=== PATIENT | male | born 1960 | race Caucasian/White ===

== ENCOUNTER → 2019-11-29 10:40 | Outpatient (BNVA) | payer MEDICARE, MEDICAID, SELFPAY | PROVIDERS: Family Provider Student in an Organized Health Care Education/Training Program; PCP Student in an Organized Health Care Education/Training Program; Visit Provider Family Medicine | DX: E11.9 Type 2 diabetes mellitus without complications (principal); I10 Essential (primary) hypertension; I25.10 Atherosclerotic heart disease of native coronary artery without angina pectoris; R09.81 Nasal congestion; J32.9 Chronic sinusitis, unspecified; F17.219 Nicotine dependence, cigarettes, with unspecified nicotine-induced disorders | CPT/HCPCS: 80053; 80061; 83036; 85025 ==

== ENCOUNTER 2019-12-31 21:27 | Emergency (ER) | payer MEDICARE, MEDICAID, SELFPAY ==
[2019-12-31 21:32] VITALS: BP 173/101; PULSE 89; RESP 18; TEMP 36.8; O2SAT 95; BMI 32.3
--- NOTE | 2019-12-31 21:32 | XR_ITS ---
WS: [id number] XR chest 1V portable [id number] REASON FOR EXAM: cough/congestion FINDINGS: The heart and mediastinal interfaces normal. The lung ewing appear to be adequately aerated no pneumonia, pleural effusion, pulmonary edema, or m ass effect. The hilum and apices are normal. The pleural surfaces all appear to be normal. No osseous abnormalities. XR/XR chest 1V portable [id number] IMPRESSION: No active cardiopulmonary changes.
--- NOTE | 2019-12-31 21:33 | ECG_ITS ---
Measurements Intervals [place] Rate: 64 P: 48 MS: 161 QRS: 38 QRSD: 94 T: -11 QT: 380 QTc: 393 SINUS RHYTHM SEPTAL MYOCARDIAL INFARCTION , OF INDETERMINATE AGE [40+ ms Q WAVE IN V1/V2] No previous ECG available for comparison Electronically Signed On 01-01-2020 20:21:03 DISTRIBUTION COLLECTION OPERATOR by Jose Phillips M.D. [id number]
--- NOTE | 2019-12-31 21:38 | PC.NURSE ---
Patient states he was sitting at home and started feeling hot and shaky, patient states this started about an hour ago. Patient states he has had these symptoms before. Patient states he is on medication for his diabetes but stopped taking it last night. Patient states his stomach is swollen and he is having nausea. Patient states he feels fine now but just a little shaky . Patient states his blood pressure was high at home. Patients blood pressure is 173/101 in ED initially. Patient states he has three stents and has multiple heart attacks in the past.
[2019-12-31 21:46] VITALS: BP 170/95; PULSE 82; RESP 16; O2SAT 95
--- NOTE | 2019-12-31 21:46 | W.ED.GENADLT ---
HPI - General Adult General: Chief complaint: Shortness of Breath/Dyspnea Stated complaint: CP Time Seen by Provider: 12/31/19 21:33 Source: patient Mode of arrival: ambulatory Limitations: no limitations History of Present Illness: HPI narrative: Patient is a very nice 59-year-old male who presents to ED today stating that approximately an hour ago after eating dinner and while watching television he began developing arms that felt hot , feeling shaky, and shortness of breath. Patient states he has had all of the above symptoms with previous panic attacks. Patient states he never had chest pains. He states upon arrival his symptoms have resolved. He is complaining of some abdominal bloating/distention that he states has been present ever since starting a new diabetic medication. Patient reports he has chronic constipation that is being treated with Linzess. Patient reports a previous heart attack 3 years ago. He currently has 3 cardiac stents. Unknown when his last stress test or echocardiogram was performed. Associated symptoms: Reports dyspnea (improved now); Deny chest pain, headache(s), malaise, nausea, rash, palpitations, syncope or vomiting Review of Systems Const: Denies: fever, chills, body aches, change in appetite, change in weight, fatigue or malaise Eyes: Denies: change in vision or blurry vision ENMT: Denies: throat pain, enlarged tonsils or painful swallowing Card: Denies: chest pain, palpitations, irregular heart rhythm, edema, swelling of feet/ankles, lightheadedness, syncope, pre-syncope, shortness of breath on exertion or shortness of breath when lying down Resp: Reports: shortness of breath (improved now); Denies: productive cough, non-productive cough or chest congestion GI: Reports: constipation and bloating; Denies: nausea, vomiting or diarrhea : Denies: flank pain, difficulty urinating, painful urination, urinary frequency or urinary urgency Musc: Denies: neck pain, back pain, extremity pain, extremity swelling or joint pain Skin/Breast: Denies: rash Neuro: Denies: headache, numbness in extremities, weakness in extremities or changes in sensation PFS ED PFSH: Social History Smoking and tobacco status: current every day smoker cigarettes Packs smoked per day: 1 Alcohol intake: never Lives independently: Yes Household members: spouse Marital status: Current occupational status: disabled History of recent travel: No Physical Exam Const: COMMON NORMALS: no apparent distress, oriented x3, no limitations, alert and well nourished NUTRITIONAL APPEARANCE: obese HENMT: COMMON NORMALS: normocephalic and head/scalp atraumatic HEAD & SCALP: normocephalic and atraumatic Chest: COMMONS NORMALS: inspection of chest normal and palpation of chest normal Resp: COMMON NORMALS: normal respiratory effort and clear to auscultation bilaterally AUSCULTATION: clear to auscultation bilaterally Cardio: COMMON NORMALS: regular rate and regular rhythm RATE: regular rate RHYTHM: regular rhythm GI: COMMON NORMALS: normal to inspection, nondistended, normoactive bowel sounds, soft to palpation, non-tender, no hepatosplenomegaly and no masses PALPATION: Yes soft and Yes no hepatosplenomegaly Extremity: COMMON NORMALS: normal to inspection Neuro: COMMON NORMALS: oriented x3 SENSORIUM/ORIENTATION: Yes alert Skin: COMMON NORMALS: no rashes or lesions noted GENERAL SKIN EXAM: no rashes or lesions noted Course Vital Signs: Vital signs: Vital Signs Temperature 98.2 F 12/31/19 21:32 Pulse Rate 73 01/01/20 00:36 Respiratory Rate 16 01/01/20 00:36 Blood Pressure 152/84 01/01/20 00:36 Pulse Oximetry 94 01/01/20 00:36 MDM - General Adult MDM Narrative: Medical decision making narrative: Patient has remained completely asymptomatic throughout his stay. He is wanting to go home. His labs are non-concerning. Baseline troponin was 11 with a negative delta. EKG without acute changes. At this time I feel patient is stable to be discharged with return to ED precautions. Patient's heart score at this time is 3. Lab Data: Labs: Lab Results 12/31/19 12/31/19 12/31/19 Range/Units 21:34 21:34 21:34 WBC 8.2 (4.0-10.0) 10^3/ uL RBC 5.85 H (4.1-5.3) 10^6/u L Hgb 17.0 H (11.7-16.6) g/dL Hct 52.5 H (42.0-52.0) % MCV 89.7 (80-94) fL MCH 29.1 (28.0-34.0) pg MCHC 32.4 (30.0-36.0) g/dL RDW 12.9 (12.1-15.1) % Plt Count 188 (130-400) 10^3/c mm MPV 11.3 H (7.4-10.4) fL Neut % (Auto) 65.9 % Lymph % (Auto) 22.4 % Dickens % (Auto) 7.1 % Eos % (Auto) 3.0 % Baso % (Auto) 0.9 % Neut # (Auto) 5.4 (1.8-7.7) 10^3/u L Lymph # (Auto) 1.8 (0.8-4.8) 10^3/u L Dickens # (Auto) 0.6 (0.2-0.9) 10^3/u L Eos # (Auto) 0.3 (0.0-0.8) 10^3/u L Baso # (Auto) 0.1 (0.0-0.1) 10^3/u L Nucleated RBC % (a uto) 0 % Nucleated RBCs # 0.0 /100WBC Sodium 140 (136-145) mmol/L Potassium 4.0 (3.5-5.1) mmol/L Chloride 99 (98-107) mmol/L Carbon Dioxide 27 (22-29) mmol/L Anion Gap 18.0 (5-19) BUN 14 (8-23) mg/dL Creatinine 1.4 H (0.7-1.2) mg/dL GFR Calculation 51.7 L (90-130) mL/min Glucose 220 H (65-115) mg/dL Calcium 9.3 (8.5-10.5) mg/dL Total Bilirubin 0.2 (0.15-1.2) mg/dL AST 13 (0-40) U/L ALT 16 (0-41) U/L Alkaline Phosphata se 71 (40-130) IU/L Troponin T Baselin e 11 (0-15) ng/mL Troponin T 120 Min [place] (0-15) ng/mL Delta Troponin T (0-10) ABS# Total Protein 7.0 (6.6-8.7) g/dL Albumin 4.1 (3.5-5.2) g/dL Globulin 2.9 (1.3-4.6) g/dL 12/31/19 Range/Units 23:45 WBC (4.0-10.0) 10^3/ uL RBC (4.1-5.3) 10^6/u L Hgb (11.7-16.6) g/dL Hct (42.0-52.0) % MCV (80-94) fL MCH (28.0-34.0) pg MCHC (30.0-36.0) g/dL RDW (12.1-15.1) % Plt Count (130-400) 10^3/c mm MPV (7.4-10.4) fL Neut % (Auto) % Lymph % (Auto) % Dickens % (Auto) % Eos % (Auto) % Baso % (Auto) % Neut # (Auto) (1.8-7.7) 10^3/u L Lymph # (Auto) (0.8-4.8) 10^3/u L Dickens # (Auto) (0.2-0.9) 10^3/u L Eos # (Auto) (0.0-0.8) 10^3/u L Baso # (Auto) (0.0-0.1) 10^3/u L Nucleated RBC % (a uto) % Nucleated RBCs # /100WBC Sodium (136-145) mmol/L Potassium (3.5-5.1) mmol/L Chloride (98-107) mmol/L Carbon Dioxide (22-29) mmol/L Anion Gap (5-19) BUN (8-23) mg/dL Creatinine (0.7-1.2) mg/dL GFR Calculation (90-130) mL/min Glucose (65-115) mg/dL Calcium (8.5-10.5) mg/dL Total Bilirubin (0.15-1.2) mg/dL AST (0-40) U/L ALT (0-41) U/L Alkaline Phosphata se (40-130) IU/L Troponin T Baselin e (0-15) ng/mL Troponin T 120 Min [place] 10.51 (0-15) ng/mL Delta Troponin T -0.49 L (0-10) ABS# Total Protein (6.6-8.7) g/dL Albumin (3.5-5.2) g/dL Globulin (1.3-4.6) g/dL Imaging Data^: CXR: My impression: NAD EKG Data^: EKG 1: EKG interpretation date: 12/31/19 EKG interpretation time: 21:42 Interpretation: Sinus rhythm Rate [address] elevation or depression noted EKG 2: EKG interpretation date: 12/31/19 EKG interpretation time: 23:42 Interpretation: Sinus rhythm Rate 64 No acute changes from EKG earlier this visit Discharge Plan Discharge Patient Disposition: Home, Self-Care Clinical Impression: Panic attack Condition: Stable Prescriptions: No Action carvedilol 6.25 mg tablet 6.25 mg PO BID RF: 0 clopidogrel [Plavix] 75 mg tablet 75 mg PO QDAY RF: 0 nitroglycerin 0.4 mg tablet, sublingual 0.4 mg SUBLINGUAL Q5M PRNRF: 0 Linzess 290 mcg capsule 290 mcg PO QDAY RF: 0 lisinopril 20 mg tablet 20 mg PO BID RF: 0 duloxetine 60 mg capsule,delayed release(DR/EC) 60 mg PO QDAY RF: 0 testosterone cypionate 200 mg/mL kit 200 mg IM .every 10 days RF: 0 multivitamin Tablet 1 tab PO QDAY RF: 0 omeprazole 20 mg capsule,delayed release(DR/EC) 20 mg PO QDAY RF: 0 aspirin 81 mg tablet,delayed release (DR/EC) 81 mg PO QDAY RF: 0 methadone 40 mg tablet,soluble 200 mg PO QDAY RF: 0 methadone 5 mg tablet 5 mg PO QDAY RF: 0 fluticasone propionate [Flonase Allergy Relief] 50 mcg/actuation spray,suspension 2 spray INTRANASAL QDAY Qty: 18.2 RF: 2 pravastatin 40 mg tablet 40 mg PO DAILY Qty: 30 RF: 0 Jardiance 25 mg tablet 25 mg PO QDAY Qty: 30 RF: 0 lactulose 10 gram/15 mL solution 10 g PO BID Qty: 473 RF: 0 Discharge Orders: Discharge Order (Routine); Ordered 01/01/20 Ordered By: Phyllis Obando Referrals: Paolo Bar [Family Provider] - Glendy Caceres DO [Primary Care Provider] - Discharge Diet: Usual diet Discharge Activity: Increase activity as tolerated Activity Restrictions/Additional Instructions: Return to the emergency department for any onset of chest pain, difficulty breathing, shortness of breath. Otherwise he may follow-up with your primary care provider. Discharge Date/Time: 01/01/20 00:38 Coding Level of Care Code ED Webmethods Architect for Amy Fwd Exam Comprehensive
[2019-12-31 21:49] LABS: Basophils # 0.1 10^3/uL (0.0-0.1); Basophils % 0.9 %; Eosinophils # 0.3 10^3/uL (0.0-0.8); Hematocrit 52.5 % (42.0-52.0); Lymphocytes # 1.8 10^3/uL (0.8-4.8); Lymphocytes % 22.4 %; Mean Corpuscular HGB Conc 32.4 g/dL (30.0-36.0); Mean Corpuscular Hemoglobin 29.1 pg (28.0-34.0); Mean Corpuscular Volume 89.7 fL (80-94); Mean Platelet Volume 11.3 fL (7.4-10.4); Monocytes # 0.6 10^3/uL (0.2-0.9); Monocytes % 7.1 %; Neutrophils # 5.4 10^3/uL (1.8-7.7); Neutrophils % 65.9 %; Nucleated Red Blood Cells % 0 %; Platelet Count 188 10^3/cmm (130-400); Red Blood Count 5.85 10^6/uL (4.1-5.3); Red Cell Distribution Width 12.9 % (12.1-15.1); White Blood Count 8.2 10^3/uL (4.0-10.0)
[2019-12-31 22:06] LABS: Alanine Aminotransferase 16 U/L (0-41); Albumin Level 4.1 g/dL (3.5-5.2); Alkaline Phosphatase 71 IU/L (40-130); Aspartate Amino Transferase 13 U/L (0-40); Blood Urea Nitrogen 14 mg/dL (8-23); Calcium 9.3 mg/dL (8.5-10.5); Carbon Dioxide 27 mmol/L (22-29); Chloride 99 mmol/L (98-107); Globulin 2.9 g/dL (1.3-4.6); Glomerular Filtration Rate 51.7 mL/min (90-130); Glucose 220 mg/dL (65-115); Sodium 140 mmol/L (136-145); Total Bilirubin 0.2 mg/dL (0.15-1.2)
[2019-12-31 22:09] VITALS: BP 171/90; PULSE 84; RESP 16; O2SAT 93
[2019-12-31 22:09] LABS: Troponin(5th) Baseline 11 ng/mL (0-15)
[2019-12-31 22:51] VITALS: BP 166/95; PULSE 77; RESP 16; O2SAT 94
[2019-12-31 23:25] VITALS: BP 137/84; PULSE 70; RESP 16; O2SAT 93
--- NOTE | 2019-12-31 23:33 | ECG_ITS ---
Measurements Intervals [place] Rate: 82 P: 62 MT: 163 QRS: 40 QRSD: 92 T: -5 QT: 361 QTc: 422 SINUS RHYTHM SEPTAL MYOCARDIAL INFARCTION , PROBABLY OLD [40+ ms Q WAVE IN V1/V2] No previous ECG available for comparison Electronically Signed On 01-01-2020 20:27:28 BLOCKER HEATED METAL FORMS by Jose Phillips M.D. [id number]
[2020-01-01 00:12] VITALS: BP 144/86; PULSE 77; RESP 16; O2SAT 94
[2020-01-01 00:17] LABS: Troponin 5 2HR 10.51 ng/mL (0-15)
[2020-01-01 00:19] LABS: Troponin 5 2HR Delta -0.49 ABS# (0-10)
[2020-01-01 00:36] VITALS: BP 152/84; PULSE 73; RESP 16; O2SAT 94
== END 2020-01-01 00:38 | disposition home or self-care (01) ==
PROVIDERS: Emergency Provider Physician Assistant; Family Provider Student in an Organized Health Care Education/Training Program; PCP Family Medicine
DX: F41.0 Panic disorder [episodic paroxysmal anxiety] (principal); E11.9 Type 2 diabetes mellitus without complications; I25.2 Old myocardial infarction; F17.210 Nicotine dependence, cigarettes, uncomplicated; Z79.84 Long term (current) use of oral hypoglycemic drugs; Z95.5 Presence of coronary angioplasty implant and graft
CPT/HCPCS: 71045; 80053; 84484; 85025; 93005; 99281; 99282; 99283

== ENCOUNTER 2020-01-16 08:23 | Day surgery (SDC) | payer MEDICARE, MEDICAID, SELFPAY ==
[2020-01-15 10:49] VITALS: BMI 32.3
[2020-01-15 10:53] VITALS: BMI 32.3
--- NOTE | 2020-01-16 08:49 | ANES.PREANE2 ---
Pre-Anesthetic Assessment Pre-Anesthetic Assessment: Height/Weight: Height 1.68 m Weight 90.718 kg Proposed Procedure: Operation Date: 01/16/20 10:00 Proposed Procedures p Colonoscopy(Not Applicable) - Dany Roth MD Social: Social History: Tobacco and No alcohol Exam: Pre-Anes Outpt Exam: alert, oriented x 3, clear to auscultation bilaterally and regular rate & rhythm Airway: Submandibular: WNL Cervical ROM: WNL MP: 2 Dentition: Full History/ROS: No significant history except as noted Pulmonary: Pulmonary: None reported CV/HEM: CV/HEM: CAD (stents placed 2018, stable since) and HTN : : None reported Hepatic: Hepatic: None reported GI: GI: GERD Metabolic: Metabolic: Hyperlipidemia Musc/skel: Comments: right arm pain, chronic Neuropsych: Neuropsych: Anxiety and Depression Anesthetic Plan: ASA status: 3 Anesthesia: Anesthesia Evaluation and MAC Risk of > 500 ml blood loss (7ml/kg in children): No PFSH Anesthesia PFSH: Social History Smoking and tobacco status: current every day smoker cigarettes Packs smoked per day: 1 Alcohol intake: never Lives independently: Yes Household members: spouse Marital status: Current occupational status: disabled History of recent travel: No Data Anesthesia Cardiac Studies: No Data to Display
[2020-01-16 09:10] VITALS: BP 184/109; PULSE 85; RESP 18; TEMP 37.2; O2SAT 94
[2020-01-16] MEDS: sodium chloride 0.9% 1,000 ML 30 ML IV (09:15)
[2020-01-16 09:18] LABS: Glucose Point of Care 93 mg/dL (70-110)
--- NOTE | 2020-01-16 10:29 | W.PM.OPSUD ---
Surgery/Procedure H&P Update DATE OF PROCEDURE: January 16, 2020 DATE H&P PERFORMED: 12/29/19 H&P UPDATE INFORMATION: I have reviewed H&P completed within last 30 days, I have examined patient prior to procedure and No changes to prior documentation PREOP DIAGNOSIS: Screening PLANNED PROCEDURE: Operation Date: 01/16/20 10:00 Proposed Procedures p Colonoscopy(Not Applicable) - Dany Roth MD
[2020-01-16 10:50] VITALS: BP 127/75; PULSE 70; RESP 16; TEMP 36.8; O2SAT 96
--- NOTE | 2020-01-16 10:52 | ANE.PACU2 ---
 Inpatient post-anesthesia follow up: Airway intact: Yes Vital signs: Temperature 98.2 F Pulse Rate 70 Respiratory Rate 16 Blood Pressure 127/75 Pulse Oximetry 96 Oxygen Delivery Me thod Nasal Cannula Oxygen Flow Rate 4 Fraction of Inspir ed Oxygen Hydration adequate: Yes Nausea and vomiting: No Pain level: 1 Mental status: Baseline
[2020-01-16 10:57] VITALS: BP 120/68; PULSE 7; RESP 18; O2SAT 98
== END 2020-01-16 11:23 | disposition home or self-care (01) ==
PROVIDERS: Family Provider Student in an Organized Health Care Education/Training Program; PCP Family Medicine; Visit Provider Surgery
PROC: 0DJD8ZZ Inspection of Lower Intestinal Tract, Via Natural or Artificial Opening Endoscopic (ICD-10-PCS; CPT 45378; principal; 2020-01-16 10:00)
DX: Z12.11 Encounter for screening for malignant neoplasm of colon (principal); Z53.8 Procedure and treatment not carried out for other reasons; I25.10 Atherosclerotic heart disease of native coronary artery without angina pectoris; Z95.5 Presence of coronary angioplasty implant and graft; I10 Essential (primary) hypertension; K21.9 Gastro-esophageal reflux disease without esophagitis; E78.5 Hyperlipidemia, unspecified; F41.9 Anxiety disorder, unspecified; F32.9 Major depressive disorder, single episode, unspecified; F17.210 Nicotine dependence, cigarettes, uncomplicated; Z79.82 Long term (current) use of aspirin; E11.9 Type 2 diabetes mellitus without complications; Z82.49 Family history of ischemic heart disease and other diseases of the circulatory system; Z83.3 Family history of diabetes mellitus
CPT/HCPCS: 12345; 36416; 45330; 82962; G0121; J2704; J7030

== ENCOUNTER 2020-01-17 07:02 | Day surgery (SDC) | payer MEDICARE, MEDICAID, SELFPAY ==
[2020-01-16 12:46] VITALS: BMI 32.3
[2020-01-17 07:19] VITALS: BP 161/94; PULSE 74; RESP 18; TEMP 36.4; O2SAT 97
[2020-01-17] MEDS: sodium chloride 0.9% 1,000 ML 30 ML (07:27)
[2020-01-17 07:30] LABS: Glucose Point of Care 102 mg/dL (70-110)
--- NOTE | 2020-01-17 08:04 | W.PM.OPSUD ---
Surgery/Procedure H&P Update DATE OF PROCEDURE: January 17, 2020 DATE H&P PERFORMED: 12/29/19 H&P UPDATE INFORMATION: I have reviewed H&P completed within last 30 days, I have examined patient prior to procedure and No changes to prior documentation PREOP DIAGNOSIS: Screening PLANNED PROCEDURE: Operation Date: 01/17/20 08:00 Proposed Procedures p Colonoscopy(Not Applicable) - Dany Roth MD
--- NOTE | 2020-01-17 08:06 | P.ANESASSM_ITS ---
Pre-Anesthetic Assessment Pre-Anesthetic Assessment: Height/Weight: Height 1.68 m Weight 90.718 kg Temp Pulse Resp BP Pulse Ox 97.5 F L 74 18 161/94 97 01/17/20 07:19 01/17/20 07:19 01/17/20 07:19 01/17/20 07:19 01/17/20 07:19 Preop Diagnosis: Screening Proposed Procedure: Operation Date: 01/17/20 08:00 Proposed Procedures p Colonoscopy(Not Applicable) - Dany Roth MD Last intake: Intake Last Liquid Date 01/16/20 Last Liquid Time 22:00 Last Solid Date 01/14/20 Last Solid Time 18:00 Social: Social History: Tobacco and No alcohol Exam: Pre-Anes Outpt Exam: alert, oriented x 3, clear to auscultation bilaterally and regular rate & rhythm Airway: Submandibular: WNL Cervical ROM: WNL MP: 2 Dentition: Full History/ROS: No significant history except as noted Pulmonary: Pulmonary: None reported CV/HEM: CV/HEM: CAD (2018 stents) and HTN : : None reported Hepatic: Hepatic: None reported GI: GI: GERD Metabolic: Metabolic: DM and Hyperlipidemia Musc/skel: Musc/skel: None reported Neuropsych: Neuropsych: Anxiety and Depression Anesthetic Plan: ASA status: 3 Anesthesia: Anesthesia Evaluation and MAC Risk of > 500 ml blood loss (7ml/kg in children): No PFSH Anesthesia PFSH: Medical History Benign essential HTN CAD in [place] artery Constipation Drug dependence, in remission GERD (gastroesophageal reflux disease) Hyperlipidemia Hypogonadism in male Major depression Type 2 diabetes mellitus, without long-term current use of insulin Surgical History H/O umbilical hernia repair History of coronary artery stent placement S/P appendectomy Family History Other CAD (coronary artery disease) Diabetes Hypertension Denies family history of Anesthesia complication Bleeding disorder Social History Smoking and tobacco status: current every day smoker cigarettes Packs smoked per day: 1 Alcohol intake: never Lives independently: Yes Household members: spouse Marital status: Current occupational status: disabled History of recent travel: No Data Anesthesia Other Labs: Laboratory Results - last 48 hr 01/17/20 07:27 POC Glucose 102 Cardiac Studies: No Data to Display
[2020-01-17 08:47] VITALS: BP 108/67; PULSE 63; RESP 18; TEMP 36.1; O2SAT 96
[2020-01-17 08:57] VITALS: BP 120/74; PULSE 68; RESP 18; O2SAT 94
== END 2020-01-17 09:08 | disposition home or self-care (01) ==
PROVIDERS: Family Provider Student in an Organized Health Care Education/Training Program; PCP Family Medicine; Visit Provider Surgery
PROC: 0DJD8ZZ Inspection of Lower Intestinal Tract, Via Natural or Artificial Opening Endoscopic (ICD-10-PCS; CPT 45378; principal; 2020-01-17 08:00)
DX: Z12.11 Encounter for screening for malignant neoplasm of colon (principal); Z79.82 Long term (current) use of aspirin; I10 Essential (primary) hypertension; I25.10 Atherosclerotic heart disease of native coronary artery without angina pectoris; Z95.1 Presence of aortocoronary bypass graft; Z82.49 Family history of ischemic heart disease and other diseases of the circulatory system; Z83.3 Family history of diabetes mellitus; F17.210 Nicotine dependence, cigarettes, uncomplicated; K64.8 Other hemorrhoids; K21.9 Gastro-esophageal reflux disease without esophagitis; E11.9 Type 2 diabetes mellitus without complications; E78.5 Hyperlipidemia, unspecified
CPT/HCPCS: 12345; 36416; 45378; 82962; G0121; J2704; J7030

== ENCOUNTER 2022-02-02 07:57 | Emergency (ER) | payer MEDICARE, MEDICAID, SELFPAY ==
[2022-02-02 08:07] VITALS: BP 161/87; PULSE 65; RESP 18; TEMP 36.9; O2SAT 97; BMI 31.4
--- NOTE | 2022-02-02 08:18 | W.ED.EXTPRO ---
HPI - Extremity Problem General: Chief complaint: Extremity Injury, Upper Stated complaint: left arm injury Time Seen by Provider: 02/02/22 08:11 History of Present Illness: Patient is a 61-year-old male that comes to the ED with left arm injury. Patient says he just moved to the area and was lifting and getting things set up and moved into his house. He was lifting a heavy object and he felt a pop in his left wrist and forearm area. He now has 6 out of 10 pain in his left forearm and wrist. Some range of motion movements of the left wrist causes pain. Associated symptoms: Deny chest pain, fever(s) or rash Review of Systems Const: Denies: fever(s), chills or fatigue Eyes: Denies: change in vision or eye discomfort ENMT: Denies: throat pain, odynophagia, nasal discharge or nasal congestion Card: Denies: chest pain, palpitations, edema, swelling of feet/ankles, dyspnea on exertion or orthopnea Resp: Denies: dyspnea, productive cough or non-productive cough GI: Denies: abdominal pain, nausea, vomiting, diarrhea, constipation or hematochezia : Denies: flank pain, difficulty urinating, dysuria or hematuria Musc: Reports: extremity pain (left wrist and forearm); Denies: neck pain, back pain or extremity swelling Skin/Breast: Denies: rash or new lesions Neuro: Denies: headache(s), numbness in extremities or weakness in extremities [facility] ED PFSH: Medical History (Updated 02/02/22 @ 09:15 by BHAKTI Gabriel) Benign essential HTN CAD in [place] artery Constipation Drug dependence, in remission GERD (gastroesophageal reflux disease) Hyperlipidemia Hypogonadism in male Major depression Type 2 diabetes mellitus, without long-term current use of insulin Surgical History H/O umbilical hernia repair History of coronary artery stent placement S/P appendectomy Family History Other CAD (coronary artery disease) Diabetes Hypertension Denies family history of Anesthesia complication Bleeding disorder Social History Smoking and tobacco status: current every day smoker cigarettes Packs smoked per day: 1 Alcohol intake: never Lives independently: Yes Household members: spouse Marital status: Current occupational status: disabled History of recent travel: No Physical Exam Const: COMMON NORMALS: no acute distress, patient oriented x3, healthy appearing and alert GENERAL APPEARANCE: cooperative and comfortable HENMT: COMMON NORMALS: normocephalic HEAD & SCALP: normocephalic MOUTH: Normal oral and palatal mucosa present THROAT: posterior oropharynx normal and uvula midline Neck/C-Spine: COMMON NORMALS: supple GENERAL: Yes normal visual inspection Resp: COMMON NORMALS: normal respiratory effort, No retractions, No use of accessory muscles and clear to auscultation bilaterally AUSCULTATION: clear to auscultation bilaterally Cardio: COMMON NORMALS: regular rate, regular rhythm, S1 normal heart sound present, S2 normal heart sound present, No gallops present (Cardio), No clicks present (Cardio), No murmurs present (Cardio) and Peripheral pulses 2+ throughout RATE: regular rate RHYTHM: regular rhythm HEART SOUNDS: S1 normal heart sound present and S2 normal heart sound present PERIPHERAL PULSES: Peripheral pulses 2+ throughout GI: COMMON NORMALS: Normal to inspection, nondistended, normoactive bowel sounds present, Soft to palpation, non-tender and no masses PALPATION: Yes Soft to palpation : COMMON NORMALS: Yes no CVA tenderness BLADDER/KIDNEY EXAM: Yes no CVA tenderness Back/Pelvis: COMMON NORMALS: no CVA tenderness Extremity: NARRATIVE EXTREMITY EXAM: Left wrist and forearm. Mild tenderness over mid forearm. Some limited range of motion due to pain. No visible deformity, erythema, swelling or ecchymosis noted. Neurovascular intact. GENERAL: Yes normal exam except as noted Neuro: COMMON NORMALS: patient oriented x3 and moves all extremities SENSORIUM/ORIENTATION: Yes alert Skin: GENERAL SKIN EXAM: dry skin Course Vital Signs: Vital signs: Vital Signs Temperature 98.4 F 02/02/22 08:07 Pulse Rate 65 02/02/22 08:07 Respiratory Rate 18 02/02/22 08:07 Blood Pressure 161/87 02/02/22 08:07 Pulse Oximetry 97 02/02/22 08:07 MDM - Extremity (Nontraumatic) Medical Decision Making Patient is a 61-year-old male comes to the ED with left forearm and wrist injury. Patient says he is moving here to [place] and is currently doing a lot of lifting and moving. He felt a pop in his left wrist and forearm. Vitals are stable. Exam of left arm is unremarkable. X-ray of left wrist and left forearm showed no acute fractures or findings. Patient diagnosed with a forearm strain and was discharged home. He was told to follow-up with his PCP in the next week for reevaluation. Return to ED precautions given. Patient understood agree with plan. Lab Data Radiology Impressions Forearm X-Ray 02/02/22 08:31 IMPRESSION: No acute abnormality. Wrist X-Ray 02/02/22 08:31 IMPRESSION: No acute abnormality. Discharge Plan Discharge Patient Disposition: Home Clinical Impression: Strain of forearm, left Qualifiers: Encounter type: initial encounter Qualified Code(s): S56.912A - Strain of unspecified muscles, fascia and tendons at forearm level, left arm, initial encounter Condition: Stable Prescriptions: No Action clopidogrel [Plavix] 75 mg tablet 75 mg PO QDAY 0RF nitroglycerin 0.4 mg tablet, sublingual 0.4 mg SUBLINGUAL Q5M PRN (Reason: Chest Pain) 0RF duloxetine 60 mg capsule,delayed release(DR/EC) 60 mg PO QDAY 0RF multivitamin Tablet 1 tab PO QDAY 0RF Ozempic 0.25 mg or 0.5 mg(2 mg/1.5 mL) pen injector 0.25 mg SUBCUT ONCE Qty: 1.5 1RF aspirin 81 mg tablet,delayed release (DR/EC) 81 mg PO QDAY 0RF methadone 40 mg tablet,soluble 200 mg PO QDAY 0RF methadone 5 mg tablet 5 mg PO QDAY 0RF Linzess 290 mcg capsule 290 mcg PO QDAY Qty: 90 0RF carvedilol 6.25 mg tablet 6.25 mg PO BID 90 Days Qty: 180 3RF fluticasone propionate [Flonase Allergy Relief] 50 mcg/actuation spray,suspension 2 spray INTRANASAL QDAY Qty: 18.2 0RF Rx Instructions: administer into each nostril famotidine 20 mg tablet 20 mg PO DAILY Qty: 30 0RF pravastatin 40 mg tablet 40 mg PO DAILY Qty: 30 0RF testosterone cypionate 200 mg/mL oil 200 mg IM .every 10 days Qty: 10 5RF lisinopril 20 mg tablet 20 mg PO BID Qty: 60 0RF Rx Instructions: Must make follow-up for further refills Discharge Orders: Discharge ED (Routine); Ordered 02/02/22 Ordered By: Vladislav Lopez Referrals: Glendy Caceres DO [Primary Care Provider] - Discharge Diet: Regular Discharge Activity: Increase activity as tolerated Activity Restrictions/Additional Instructions: Follow-up with medical provider as directed in the next 5 to 7 days for reevaluation. Rest and limit activity with left arm for the next couple days to allow for healing. Apply cold pack on left arm and take [id number] Tylenol for pain. Return to the ER or your medical provider if condition worsens. Please read and understand discharge instructions. Thank you for choosing [facility] for your healthcare needs today. Please realize this is an emergency room and that we are providing you with a medical screening exam and this may not be complete and all inclusive of all the testing and or work up that you may need to determine your ailment or severity of your illness. It is very important that you follow up as instructed or that you return to the Emergency Department should you have concerns or if your condition changes or worsens in any way. Coding Level of Care Code ED Ethanol Quality Leader for Amy Haddad Exam Comprehensive
--- NOTE | 2022-02-02 08:31 | XR_ITS ---
WS: [id number] XR forearm LT 2V [id number] REASON FOR EXAM: injury while lifting FINDINGS: No fracture of the radius or ulna. No dislocation of the radial ulnar articulations proximally or distally. No soft tissue abnormality. XR/XR forearm LT 2V [id number] IMPRESSION: No acute abnormality.
--- NOTE | 2022-02-02 08:31 | XR_ITS ---
WS: [id number] XR wrist LT min 3V* [id number] REASON FOR EXAM: injury while lifting FINDINGS: No fracture or focal bone lesion. Joint spaces of the left wrist are intact and well preserved. No soft tissue abnormality. XR/XR wrist LT min 3V* [id number] IMPRESSION: No acute abnormality.
== END 2022-02-02 09:29 | disposition home or self-care (01) ==
PROVIDERS: Emergency Provider Physician Assistant; PCP Family Medicine
DX: F17.210 Nicotine dependence, cigarettes, uncomplicated (principal); S56.912A Strain of unspecified muscles, fascia and tendons at forearm level, left arm, initial encounter; X58.XXXA Exposure to other specified factors, initial encounter
CPT/HCPCS: 73090; 73110; 99282

== ENCOUNTER → 2022-04-09 15:32 | Outpatient (BNVA) | payer MEDICARE, MEDICAID, SELFPAY | PROVIDERS: Visit Provider Family Medicine | DX: E78.5 Hyperlipidemia, unspecified (principal); Z76.89 Persons encountering health services in other specified circumstances; K21.9 Gastro-esophageal reflux disease without esophagitis; E78.2 Mixed hyperlipidemia; I25.10 Atherosclerotic heart disease of native coronary artery without angina pectoris; F17.219 Nicotine dependence, cigarettes, with unspecified nicotine-induced disorders; E11.9 Type 2 diabetes mellitus without complications; I10 Essential (primary) hypertension; K59.03 Drug induced constipation; T40.2X5A Adverse effect of other opioids, initial encounter; K40.90 Unilateral inguinal hernia, without obstruction or gangrene, not specified as recurrent | CPT/HCPCS: 80053; 80061; 84153; 84443; 85025 ==

== ENCOUNTER → 2022-04-14 10:20 | Outpatient (BNVA) | payer MEDICARE, MEDICAID, SELFPAY | PROVIDERS: PCP Family Medicine; Visit Provider Surgery | DX: R19.09 Other intra-abdominal and pelvic swelling, mass and lump (principal) | CPT/HCPCS: 99203 ==

== ENCOUNTER 2022-05-29 11:34 | Outpatient (CLI) | payer MEDICARE, MEDICAID, SELFPAY ==
--- NOTE | 2022-05-29 12:00 | CT_ITS ---
WS: [id number] CT ABDOMEN AND PELVIS NONCONTRAST HISTORY: R groin mass TECHNIQUE: Imaging performed through the abdomen and pelvis. Coronal and sagittal reformats are submi tted. All CT scans at [facility] use at least one of these dose optimization techniques: auto mated exposure control; mA and/or kV adjustment per patient size (includes targeted exams where dose is matched to clinical indication); or iterative reconstruction. DLP: 1073.62 mGy.cm COMPARISON: None available. Lower thorax: Lung bases are clear. Visualized heart is normal. No hiatal hernia. Liver: Normal size liver with mild heterogeneity on this unenhanced study. No discrete mass identifie d. Gallbladder: Normal gallbladder. Pancreas: Normal size and attenuation. Normal pancreatic duct. No pancreatitis or mass. Spleen: Normal. Adrenal glands: 17 mm LEFT adrenal adenoma. RIGHT adrenal gland is normal. Right kidney: Mild diffuse perinephric stranding.. No cysts stones identified. Left kidney: Moderate atrophy of the LEFT kidney with perinephric stranding. No hydronephrosis or obs truction. Aorta: Mild dilatation of the abdominal aorta. Prior aneurysm repair. Aorta measures 3.4 cm transvers sergo. No para-aortic hematoma. Study was performed without IV contrast. No free fluid, intraperitoneal air or significant lymphadenopathy. GI tract: Well-distended stomach. No small bowel obstruction. Diffuse constipation. Abdominal wall: Supraumbilical fat-containing hernia. Pelvis: At the RIGHT groin there is a soft tissue mass measuring 4.8 x 3.9 cm. Well-circumscribed mas s with low attenuation and low Hounsfield units. This is inseparable and contiguous with the aneurysm al repair access site. Postoperative changes at the LEFT groin are normal. No mass. Osseous structures: Mild anterior wedging of T12 by 10%. Sclerotic focus noted along the medial RIGHT femoral neck measures 2.[address]/CT abdomen pelvis wo con [id number] IMPRESSION: 1. Palpable area in the RIGHT groin corresponds to a well-circumscribed low-at tenuation mass measuring 4.8 x 3.9 cm. Contiguous with the access site for the abdominal aortic aneurysm repair. I favor this is probably a postoperative sero ma. Due to its continuity with the external iliac artery ultrasound evaluation should be obtained to confirm there is no pseudoaneurysm. 2. Bilateral perinephric stranding with no obstruction. This is probably chron ic stranding. No prior studies for comparison. 3. Moderate atrophy LEFT kidney. 4. Sclerotic focus involving the medial RIGHT femoral neck with overlying ruth ical thickening. Indeterminate. Could be a focal sclerotic bone lesion such as an osteoid osteoma or metastatic site. Consider follow-up bone scan imaging. 5. Mild anterior wedging of T12. 6. LEFT adrenal adenoma.
== END 2022-05-29 11:35 | disposition home or self-care (01) ==
PROVIDERS: PCP Family Medicine; Visit Provider Surgery
DX: R19.09 Other intra-abdominal and pelvic swelling, mass and lump (principal); D35.02 Benign neoplasm of left adrenal gland; M48.54XA Collapsed vertebra, not elsewhere classified, thoracic region, initial encounter for fracture; N26.1 Atrophy of kidney (terminal)
CPT/HCPCS: 74176

== ENCOUNTER 2022-06-30 06:51 | Outpatient (CLI) | payer MEDICARE, MEDICAID, SELFPAY ==
--- NOTE | 2022-06-30 07:00 | US_ITS ---
WS: [id number] ULTRASOUND SOFT TISSUES RIGHT inguinal region. HISTORY: Soft tissue mass in the RIGHT inguinal region seen on a recent CT from 05/29/2022. Postoperat unique changes at the RIGHT groin. COMPARISON: CT 05/29/2022 TECHNIQUE: 2-D and color Doppler imaging is submitted. There is a mildly complex cystic mass in the RIGHT inguinal region. This corresponds to the abnormali ty described on the recent CT. There are low level echoes throughout this mass. There are a few layer ing echogenicities and a few soft tissue strands. This cystic mass measures 5.4 x 3.3 x 5.0 cm. Not s ignificantly increased in size since the prior examination. There is no increased vascularity present . The femoral artery and vein are posterior to this mass and displaced. There does not appear to be a connection at this time. US/US abdomen limited [id number] IMPRESSION: 1. No increased vascularity within the complex cystic mass in the RIGHT groin. No active pseudoaneurysm. Potentially this could be a thrombosed pseudoaneurys m or pseudoaneurysm with a sealed off tract. 2. Favor this is probably a postoperative seroma. If this does increase clinic ally in size or becomes painful this should be surgically evaluated.
== END 2022-06-30 06:52 | disposition home or self-care (01) ==
LOC: RAD 06:52
PROVIDERS: PCP Family Medicine; Visit Provider Family Medicine
DX: K40.90 Unilateral inguinal hernia, without obstruction or gangrene, not specified as recurrent (principal)
CPT/HCPCS: 76705

== ENCOUNTER → 2022-07-03 08:57 | Outpatient (BNVA) | payer MEDICARE, MEDICAID, SELFPAY | PROVIDERS: PCP Family Medicine; Visit Provider Surgery | DX: K43.2 Incisional hernia without obstruction or gangrene (principal); K59.00 Constipation, unspecified; R19.09 Other intra-abdominal and pelvic swelling, mass and lump | CPT/HCPCS: 99214 ==

== ENCOUNTER 2022-07-23 07:12 | Day surgery (SDC) | payer MEDICARE, MEDICAID, SELFPAY ==
[2022-07-22 09:56] VITALS: BMI 29.8
[2022-07-23] VITALS (9 sets, daily range): BP systolic 135–165; BP diastolic 77–90; PULSE 60–75; RESP 14–18; TEMP 36.4–37; O2SAT 93–98
--- NOTE | 2022-07-23 06:14 | P.ANESASSM_ITS ---
Pre-Anesthetic Assessment Height/Weight: Height 1.68 m Weight 83.915 kg Preop Diagnosis: Screening Operation Date: 07/23/22 08:40 Proposed Procedures p Laparoscopic Ventral Hernia Repair Laparoscopic Incisional Hernia Repair(Not Applicable) - Dagoberto Brian DO Familial anesthetic complications: none Was Beta Ruby taken within 24 hours: Yes Was Clonidine taken within 24 hours: N/A Last intake: 07/22/22 Social Tobacco and No alcohol Exam alert, oriented x 3, clear to auscultation bilaterally and regular rate & rhythm Airway Submandibular: within normal limits Cervical ROM: within normal limits Mallampati: Class II Dentition: false Pulmonary Sleep Apnea Denies COPD CV/HEM Coronary Artery Disease, Hypertension and Myocardial Infarction Hx of polycythemia and ortoiliac occlusive disease S/P CA stents 2017 and stenting of abdominal and iliac aorta about a year ago which resulted in CKD - currently able to cut wood, drag in a deer without chest pain or SOB Chronic Renal Insufficiency Hepatic None reported GI Gastroesophageal Reflux Disease Metabolic Diabetes Mellitus and Hyperlipidemia Musc/skel Osteoarthritis/DJD Incisional hernia Neuropsych Depression Anesthetic Plan ASA status: 3 Anesthesia: Anesthesia Evaluation and General Other: We discussed risk and benefits of general anesthesia including PONV, sore throat (sometimes severe), corneal abrasion, positioning and peripheral nerve injuries, life threatening allergic reaction, post operative ICU admission requiring prolonged intubation, aspiration, stroke, heart attack, , and rare incidences of recall. Patient consents to proceed with general anesthesia. Today I conducted a brief goal based motivational smoking cessation intervention with the patient. We discussed the health risk of prolonged tobacco use, as well as the risk of gen-operative tobacco use and its impact on wound healing/post- op infections. We discussed various options for cessation including medications PO, patches and gum, counseling. We discussed the value of a quit date. Patient appreciated counseling, all questions answered. Risk of > 500 ml blood loss (7ml/kg in children): No Medications/Allergies Home Medications Medication Instructions Recorded Confirmed Last Taken Type duloxetine 60 mg capsule,delayed 60 mg PO QDAY 11/24/19 07/22/22 01/16/20 History release nitroglycerin 0.4 mg sublingual 0.4 mg sublingual Q5M PRN Chest 11/24/19 07/22/22 Unknown History tablet Pain aspirin 81 mg tablet,delayed 81 mg PO QDAY 11/29/19 07/22/2201/15/20 History release methadone 40 mg soluble tablet 200 mg PO QDAY 11/29/19 07/22/22 01/17/20 05:30 History 80 mg methadone 5 mg tablet 5 mg PO QDAY 11/29/19 07/22/22 01/16/20 History carvedilol 6.25 mg tablet 6.25 mg PO BID 90 days #180 tabs 02/06/20 07/22/22 Unknown Rx fluticasone propionate 50 2 spray intranasal QDAY #18.2 mL 03/15/20 07/22/22 Unknown Rx mcg/actuation nasal spray,suspension (Flonase Allergy Relief) amlodipine 5 mg tablet 5 mg PO DAILY 04/09/22 07/22/22 Unknown History ondansetron HCl 4 mg tablet 4 mg PO Q8H PRN Nausea And Vomiting 04/09/22 07/22/22 Unknown History pravastatin 40 mg tablet 20 mg PO DAILY #90 tabs 05/06/22 07/22/22 Unknown Rx testosterone cypionate 200 mg/mL 200 mg IM .every 10 days #10 mL 05/06/22 07/22/22 Unknown Rx intramuscular oil miscellaneous medical supply 1 ea miscellaneous .weekly #100 ea 05/19/22 07/03/22 Unknown Rx lisinopril 20 mg tablet 20 mg PO BID #30 tabs 06/18/22 07/22/22 Unknown Rx linaclotide 145 mcg capsule 145 mcg PO DAILY #30 caps 07/03/22 07/22/22 Unknown Rx (Linzess) calcitriol 0.25 mcg capsule 0.25 mcg PO DAILY 07/23/22 07/22/22 07/22/22 History (Rocaltrol) famotidine 20 mg tablet 20 mg PO DAILY 07/23/22 07/23/22 07/22/22 History Allergies Allergy/AdvReac Type Severity Reaction Status Date / Time No Known Allergies Allergy Verified 07/22/22 09:48 PFSH Anesthesia Medical History Aortoiliac occlusive disease Atherosclerosis of aorta Benign essential HTN CAD in [place] artery Constipation Constipation Drug dependence, in remission GERD (gastroesophageal reflux disease) Hx of myocardial infarction Hyperlipidemia Hypogonadism in male Major depression Occlusion of left iliac artery Polycythemia Type 2 diabetes mellitus, without long-term current use of insulin Surgical History H/O umbilical hernia repair History of abdominal aortic aneurysm repair History of aortoiliofemoral vascular bypass 05/12/21 History of coronary artery stent placement History of esophagogastroduodenoscopy (EGD) 2020 Hx of colonoscopy 2020 Hx of umbilical hernia repair S/P appendectomy Family History Other CAD (coronary artery disease) Diabetes Hypertension Denies family history of Anesthesia complication Bleeding disorder Social History Smoking and tobacco status: current every day smoker cigarettes Packs smoked per day: 1 Alcohol intake: never Lives independently: Yes Household members: spouse Marital status: Current occupational status: disabled History of recent travel: No Data Anesthesia : 07/23/22 07:43 Cardiac Studies: No Data to Display
--- NOTE | 2022-07-23 07:29 | ECG_ITS ---
[facility] Test Date: 2022-07-23 Pat Name: Wesley Ramirez Department: Room: Gender: Male Wet Trimmer: : 1960 Requested By: Rosalino Ahmadi Order Number: [id number] Seth MD: Jose Phillips M.D. Measurements Intervals [place] Rate: 70 P: 55 MO: 177 QRS: 14 QRSD: 83 T: -12 QT: 404 QTc: 437 Interpretive Statements SINUS RHYTHM SEPTAL MYOCARDIAL INFARCTION , PROBABLY OLD [40+ ms Q WAVE IN V1/V2] Compared to ECG 12/31/2019 23:42:10 No significant changes Electronically Signed On 07-23-2022 20:48:49 CDT by Jose Phillips M.D. [id number]
[2022-07-23] MEDS: sodium chloride 0.9% 1,000 ML 30 ML IV (07:42)
--- NOTE | 2022-07-23 08:00 | W.PM.OPSUD ---
Surgery/Procedure H&P Update DATE OF PROCEDURE: July 23, 2022 DATE H&P PERFORMED: 07/03/22 PREOP DIAGNOSIS: recurrent incisional hernia PLANNED PROCEDURE: Operation Date: 07/23/22 08:40 Proposed Procedures p Laparoscopic Ventral Hernia Repair Laparoscopic Incisional Hernia Repair(Not Applicable) - Dagoberto Brian DO
[2022-07-23 08:15] LABS: Alanine Aminotransferase 8 U/L (0-41); Alkaline Phosphatase 78 U/L (40-130); Anion Gap 12.7 (5-19); Aspartate Amino Transferase 7 U/L (0-40); Blood Urea Nitrogen 24 mg/dL (8-23); Calcium 8.8 mg/dL (8.5-10.5); Carbon Dioxide 31 mmol/L (22-29); Chloride 101 mmol/L (98-107); Glomerular Filtration Rate 33.9 mL/min (90-130); Glucose 111 mg/dL (65-115); Osmolality Calculated 295 mOsm/kg (285-295); Potassium 4.7 mmol/L (3.5-5.1); Sodium 140 mmol/L (136-145); Total Bilirubin 0.2 mg/dL (0.15-1.2)
[2022-07-23] MEDS: ceFAZolin 2,000 MG in sodium chloride 0.9% (plus) 50 ML 100 MG IV (08:36)
--- NOTE | 2022-07-23 09:21 | PM.OP ---
Operative Report Date of procedure: July 23, 2022 Pre-op diagnosis: Preop Diagnosis recurrent incisional hernia Post-op diagnosis: same Procedure done: Laparoscopic repair of recurrent incisional hernia with mesh Implants: 6 inch round ventral light mesh Specimens removed/disposition: Hernia sac Surgeon: Dr. Dagoberto Brian DO Anesthesia: General Estimated blood loss (mL): 5 Complications: None apparent Brief History: This is a very pleasant 62-year-old male that had an umbilical hernia repair in the past and then a laparotomy through the mesh for AAA repair. He had a hernia recurrence at the incision. Laparoscopic repair of recurrent incisional hernia with mesh was indicated. Risks and benefits were explained and documented. Procedure: Patient was wheeled into the operative room and placed on the OR table in a supine position. Abdomen was inspected prepped and draped in usual sterile fashion. Time-out was performed and all present were in agreement. A 15 blade scalp was used to make a 5 millimeter incision left upper quadrant. A Veress needle was placed into the incision and intra-abdominal insufflation was brought to 15 millimeters of mercury. A 12 millimeter trocar was placed into the left lower quadrant. The energy but device was then used to cut out the hernia sac. There is a small 1.5 cm hernia and an adjacent 5 mm hernia near the midline. The 6 inch mesh was then taken and inserted via the left lower quadrant incision. The mesh was then tacked in place in a double crown fashion. The skeleton was removed from the mesh. The hernia sac was then removed from the abdomen via the left lower quadrant. The left lower quadrant port site was closed with an 0 Vicryl suture in a Jean Pierre-Olu in a [id number] fashion. Incisions were closed with 4 O Vicryl in a subcuticular interrupted fashion. Skin glue was applied. Patient tolerated the procedure well.
--- NOTE | 2022-07-23 14:39 | ANE.PACU2 ---
Inpatient post-anesthesia follow up: Airway intact: Yes Vital signs: Temperature 98.6 F Pulse Rate 66 Respiratory Rate 18 Blood Pressure 151/80 Pulse Oximetry 96 Oxygen Delivery Me thod Room Air Oxygen Flow Rate 6 Fraction of Inspir ed Oxygen Hydration adequate: Yes Nausea and vomiting: No Pain level: 1 Mental status: Baseline
== END 2022-07-23 10:33 | disposition home or self-care (01) ==
PROVIDERS: Anesthesiology; PCP Family Medicine; Visit Provider Surgery
PROC: 0WQF4ZZ Repair Abdominal Wall, Percutaneous Endoscopic Approach (ICD-10-PCS; CPT 49656; principal; 2022-07-23 08:30)
DX: K43.2 Incisional hernia without obstruction or gangrene (principal); G47.30 Sleep apnea, unspecified; I25.10 Atherosclerotic heart disease of native coronary artery without angina pectoris; I10 Essential (primary) hypertension; I25.2 Old myocardial infarction; Z95.5 Presence of coronary angioplasty implant and graft; K21.9 Gastro-esophageal reflux disease without esophagitis; E11.9 Type 2 diabetes mellitus without complications; E78.5 Hyperlipidemia, unspecified
CPT/HCPCS: 49656; 80053; 88302; 93005; J1100; J2250; J2370; J2405; J2704; J2710; J3010; J3490; J7030

== ENCOUNTER → 2022-08-03 09:02 | Outpatient (BNVA) | payer MEDICARE, SELFPAY | PROVIDERS: PCP Family Medicine; Visit Provider Surgery | DX: Z98.890 Other specified postprocedural states (principal); K43.2 Incisional hernia without obstruction or gangrene | CPT/HCPCS: 99024 ==

== ENCOUNTER 2022-08-10 08:44 | Emergency (ER) | payer MEDICARE, MEDICAID, SELFPAY ==
[2022-08-10 08:46] VITALS: BP 180/85; PULSE 79; RESP 16; TEMP 36.5; O2SAT 98; BMI 29.8
--- NOTE | 2022-08-10 09:02 | XRR_ITS ---
PROCEDURE INFORMATION: Exam: XR Right Hip Exam date and time: 08/10/2022 9:24 AM Age: 62 years old Clinical indication: Hip pain; Right hip; Patient HX: Left hip surgery TECHNIQUE: Imaging protocol: Radiologic exam of the Right hip. Views: 1 view hip with pelvis when performed. COMPARISON: CT abdomen pelvis wo con [id number] 05/29/2022 1:16 PM FINDINGS: Tubes, catheters and devices: Surgical clips project over the right groin region. Bones/joints: No fracture or dislocation. Unchanged sclerotic lesion about the inferior aspect of the right femoral neck, which may represent obscured osteoma, enchondroma or metastatic lesion in the adequate clinical setting. Soft tissues: Unremarkable. XR/XR hip RT 2-3V wo/w pel* [id number] IMPRESSION: No acute injury.
--- NOTE | 2022-08-10 09:37 | ED_ITS ---
HPI - Extremity Problem General: Chief complaint: Extremity Problem,Nontraumatic Stated complaint: Right hip and leg pain Time Seen by Provider: 08/10/22 08:47 Source: patient Mode of arrival: ambulatory History of Present Illness: 62-year-old male comes in complaining of right hip pain. This been a problem for several weeks. Particularly worse over the last couple of days. Previously a right inguinal hernia repair as a pulsatile mass in that region is being referred to vascular for he had seen Dr. Brian in follow-up. Previous ultrasound question of thrombosed pseudoaneurysm. He has not had any claudication in his leg. He states he will occasionally get pain but is not always associated with activity at times he can walk for distance without any pain other times it does seem to cause leg pain and cramping but has not been consistent. No injury or trauma to the hip no falls. MD Complaint: joint pain Onset (ago): day(s) Pain Consistency: constant Location: right and lower extremity Quality: aching Radiation: none Relieving factors: nothing Exacerbating factors: nothing Associated symptoms: Deny chest pain, fever(s) or rash Review of Systems Const: Denies: fever(s), chills, body aches, change in appetite, fatigue or malaise ENMT: Denies: throat pain, ear or mastoid pain, nasal discharge or nasal congestion Card: Denies: chest pain, palpitations, irregular heart rhythm, edema, dyspnea on exertion or orthopnea Resp: Denies: dyspnea, productive cough or non-productive cough GI: Denies: abdominal pain, nausea, vomiting, hematemesis, coffee ground emesis, diarrhea, constipation, bloating, hematochezia or melena : Denies: flank pain, difficulty urinating, dysuria, urinary frequency or urinary urgency Skin/Breast: Denies: rash or pruritus PFSH ED PFSH: Medical History Aortoiliac occlusive disease Atherosclerosis of aorta Benign essential HTN CAD in [place] artery Constipation Constipation Drug dependence, in remission GERD (gastroesophageal reflux disease) Hx of myocardial infarction Hyperlipidemia Hypogonadism in male Major depression Occlusion of left iliac artery Polycythemia Type 2 diabetes mellitus, without long-term current use of insulin Surgical History H/O umbilical hernia repair History of abdominal aortic aneurysm repair History of aortoiliofemoral vascular bypass 05/12/21 History of coronary artery stent placement History of esophagogastroduodenoscopy (EGD) 2020 Hx of colonoscopy 2020 Hx of umbilical hernia repair S/P appendectomy Family History Other CAD (coronary artery disease) Diabetes Hypertension Denies family history of Anesthesia complication Bleeding disorder Social History Smoking and tobacco status: current every day smoker cigarettes Packs smoked per day: 1 Alcohol intake: never Lives independently: Yes Household members: spouse Marital status: Current occupational status: disabled History of recent travel: No Physical Exam Const: GENERAL APPEARANCE: cooperative and comfortable ORIENTATION/CONSCIOUSNESS: Yes awake, Yes oriented to person, Yes oriented to place and Yes oriented to time HENMT: COMMON NORMALS: normocephalic, atraumatic and hearing grossly normal bilaterally HEAD & SCALP: normocephalic and atraumatic Resp: COMMON NORMALS: normal respiratory effort, No retractions, No use of accessory muscles and clear to auscultation bilaterally AUSCULTATION: clear to auscultation bilaterally Cardio: COMMON NORMALS: regular rate, regular rhythm and No murmurs present (Cardio) RATE: regular rate RHYTHM: regular rhythm GI: COMMON NORMALS: Soft to palpation and No hepatosplenomegaly present AUSCULTATION: Yes normoactive bowel sounds PALPATION: Yes Soft to palpation, No Tenderness to palpation present (GI), No Guarding due to palpation present (GI) and Yes No hepatosplenomegaly present : OTHER: Pulsatile right inguinal mass. Inferior to previous inguinal hernia surgery. It is nonpainful. Is not reducible does not appear to be a hernia itself. Extremity: COMMON NORMALS: normal to inspection, capillary refill normal, no clubbing, cyanosis or edema, no calf tenderness and no pedal edema Neuro: SENSORIUM/ORIENTATION: Yes oriented to person, Yes oriented to place and Yes oriented to time Skin: COMMON NORMALS: no rashes or lesions noted GENERAL SKIN EXAM: no rashes or lesions noted Course Vital Signs: Vital signs: Vital Signs Temperature 97.7 F 08/10/22 08:46 Pulse Rate 84 08/10/22 10:24 Respiratory Rate 16 08/10/22 08:46 Blood Pressure 131/74 08/10/22 10:24 Pulse Oximetry 98 08/10/22 08:46 Oxygen Delivery Me thod 08/10/22 08:46 MDM - Extremity (Nontraumatic) Medical Decision Making On exam mass in the right inguinal region felt pulsatile ultrasound shows no vascular compromise it is a seroma overlying the femoral artery I think with exam is what actually feels pulsatile is likely due to his recent inguinal hernia surgery. Patient tells me has been referred to vascular for this and not sure he really needs to go there and did call Dr. Brian advised him of the visit and the findings its. His inguinal hernia her hernia surgery done. Advise point patient is usually absorbed themselves there is nothing really to do with them we do not drain them because they most likely will recur. Follow- up with Roc as planned. Medical Records I reviewed the patient's medical records. Lab Data I reviewed the patient's lab results. Radiology Impressions Hip/Pelvis X-Ray 08/10/22 09:02 IMPRESSION: No acute injury. Discharge Plan Discharge Patient Disposition: Home Clinical Impression: Seroma after procedure Condition: Stable Prescriptions: No Action nitroglycerin 0.4 mg tablet, sublingual 0.4 mg SUBLINGUAL Q5M PRN (Reason: Chest Pain) duloxetine 60 mg capsule,delayed release(DR/EC) 60 mg PO QDAY aspirin 81 mg tablet,delayed release (DR/EC) 81 mg PO QDAY methadone 40 mg tablet,soluble 200 mg PO QDAY methadone 5 mg tablet 5 mg PO QDAY ondansetron HCl 4 mg tablet 4 mg PO Q8H PRN (Reason: Nausea And Vomiting) amlodipine 5 mg tablet 5 mg PO DAILY miscellaneous medical supply Misc 1 ea miscellaneous .weekly Qty: 100 2RF Rx Instructions: Please issue syringes, needles and other supplies for testosterone use. Linzess 145 mcg capsule 145 mcg PO DAILY Qty: 30 5RF carvedilol 6.25 mg tablet 6.25 mg PO BID 90 Days Qty: 180 3RF pravastatin 40 mg tablet 20 mg PO DAILY Qty: 90 1RF testosterone cypionate 200 mg/mL oil 200 mg IM .every 10 days Qty: 10 5RF fluticasone propionate 50 mcg/actuation spray,suspension See Rx Instructions .ROUTE .COMPLEX Qty: 48 0RF Dose Instruction: SPRAY 1 SPRAY INTO EACH NOSTRIL TWICE A DAY Rx Instructions: SPRAY 1 SPRAY INTO EACH NOSTRIL TWICE A DAY lisinopril 20 mg tablet See Rx Instructions .ROUTE .COMPLEX Qty: 30 2RF Dose Instruction: TAKE 1 TABLET BY MOUTH TWICE A DAY *NEEDS APPT* Rx Instructions: TAKE 1 TABLET BY MOUTH TWICE A DAY famotidine 20 mg tablet 20 mg PO DAILY Rx Instructions: TAKE 1 TABLET BY MOUTH EVERYDAY AT BEDTIME Rocaltrol 0.25 mcg capsule 0.25 mcg PO DAILY Discharge Orders: Discharge ED (Routine); Ordered 08/10/22 Ordered By: Baldo Reynoso Referrals: Gonzalez Cho, [Primary Care Provider] - Patient Instructions: Opioid Safety, Pain Management Activity Restrictions/Additional Instructions: Follow-up with Dr. Brian with Dr. Lagos as previously scheduled. Coding Level of Care Code ED Miller Head Assistant Wet Process for Amy Fwjoseph Exam Detailed
--- NOTE | 2022-08-10 09:42 | USCV_ITS ---
Wesley Ramirez Age: 62 Gender: M : 1960 Exam Date: 08/10/2022 09:54 Ordering Phys: Baldo Reynoso DO Technologist: Johnson Cline Exam Location: [facility] [place]_ Indication: ? psuedo anuer Findings hx of aaa repain and bypass graft over 6 weeks ago Large cyst in the right groin with no color doppler of vascularity. Cyst measures 4.9 x 3.8 x 4.6 cm. Likely a post op seroma as there has been recent surgery. The adjacent artery is normal. Conclusions Large cystic mass at right groin without vascularity. Favor post op seroma or hematoma as most likely. Dr. Roslyn Guaman DO (Electronically Signed) Final Date: 10 August 2022 11:22 S
[2022-08-10 10:24] VITALS: BP 131/74; PULSE 84
== END 2022-08-10 10:25 | disposition home or self-care (01) ==
PROVIDERS: Emergency Provider Family Medicine; PCP Family Medicine
DX: I97.648 Postprocedural seroma of a circulatory system organ or structure following other circulatory system procedure (principal); F17.210 Nicotine dependence, cigarettes, uncomplicated; I25.10 Atherosclerotic heart disease of native coronary artery without angina pectoris; I10 Essential (primary) hypertension; I25.2 Old myocardial infarction; E78.5 Hyperlipidemia, unspecified; E11.9 Type 2 diabetes mellitus without complications
CPT/HCPCS: 73502; 93926; 99283

== ENCOUNTER → 2022-08-11 13:29 | Outpatient (BNVA) | payer MEDICARE, MEDICAID, SELFPAY | PROVIDERS: PCP Family Medicine; Visit Provider Thoracic Surgery (Cardiothoracic Vascular Surgery) | DX: R19.09 Other intra-abdominal and pelvic swelling, mass and lump (principal) | CPT/HCPCS: 99203 ==

== ENCOUNTER → 2022-08-21 11:05 | Outpatient (BNVA) | payer MEDICARE, SELFPAY | PROVIDERS: PCP Family Medicine; Visit Provider Nurse Practitioner Family | DX: M16.11 Unilateral primary osteoarthritis, right hip (principal); N18.30 Chronic kidney disease, stage 3 unspecified | CPT/HCPCS: 80053 ==

== ENCOUNTER → 2022-09-09 10:55 | Outpatient (BNVA) | payer MEDICARE, MEDICAID, SELFPAY | PROVIDERS: PCP Family Medicine; Referring Provider Nurse Practitioner Family; Visit Provider Orthopaedic Surgery | DX: M25.551 Pain in right hip (principal) | CPT/HCPCS: 99203 ==

== ENCOUNTER → 2023-01-14 08:14 | Outpatient (BNVA) | payer MEDICARE, MEDICAID, SELFPAY | PROVIDERS: PCP Family Medicine; Visit Provider Thoracic Surgery (Cardiothoracic Vascular Surgery) | DX: R19.09 Other intra-abdominal and pelvic swelling, mass and lump (principal) | CPT/HCPCS: 99212 ==

== ENCOUNTER → 2023-04-08 08:24 | Outpatient (BNVA) | payer MEDICARE, SELFPAY | PROVIDERS: PCP Family Medicine; Visit Provider Family Medicine | DX: E78.5 Hyperlipidemia, unspecified (principal); K40.90 Unilateral inguinal hernia, without obstruction or gangrene, not specified as recurrent; Z12.5 Encounter for screening for malignant neoplasm of prostate; E11.9 Type 2 diabetes mellitus without complications; N18.32 Chronic kidney disease, stage 3b; F17.219 Nicotine dependence, cigarettes, with unspecified nicotine-induced disorders; E78.2 Mixed hyperlipidemia; R19.09 Other intra-abdominal and pelvic swelling, mass and lump; E83.52 Hypercalcemia; I12.9 Hypertensive chronic kidney disease with stage 1 through stage 4 chronic kidney disease, or unspecified chronic kidney disease | CPT/HCPCS: 80053; 80061; 82043; 82306; 83036; 84443; 85025; G0103 ==

== ENCOUNTER 2023-04-15 09:15 | Outpatient (CLI) | payer MEDICARE, MEDICAID, SELFPAY ==
--- NOTE | 2023-04-15 09:30 | CT_ITS ---
WS: [id number] CT ABDOMEN AND PELVIS NONCONTRAST HISTORY: RIGHT inguinal mass. Pain and swelling. TECHNIQUE: Imaging performed through the abdomen and pelvis. Coronal and sagittal reformats are submi tted. All CT scans at [facility] use at least one of these dose optimization techniques: auto mated exposure control; mA and/or kV adjustment per patient size (includes targeted exams where dose is matched to clinical indication); or iterative reconstruction. DLP: 538.53 mGy.cm COMPARISON: 05/29/2022 Lower thorax: Lung bases are clear. Visualized heart is normal. No hiatal hernia. Liver: Mildly heterogeneous liver. No mass identified on this unenhanced exam. Liver is top normal si ze. Gallbladder: Normal gallbladder. No pericholecystic fluid or cholelithiasis. No gallbladder wall thic [place]. Common bile duct is top normal size at 7 to 8 mm. Pancreas: Pancreas is similar configuration to the prior examinations. Pancreatic head is difficult t o visualize without IV contrast and the adjacent duodenum. Spleen: Normal. Adrenal glands: Normal RIGHT adrenal gland. Stable LEFT adrenal adenoma measuring 16 mm. Right kidney: Mild perinephric stranding. No obstructive pattern. Stranding is chronic and was noted also on the prior exam. Left kidney: Moderate atrophy of the LEFT kidney with marked perinephric stranding. Similar to the pr ior study. Aorta: Mild dilatation of the abdominal aorta. Maximum transverse diameter is 3.6 cm below the renal arteries. Bypass graft begins along the distal aorta to the femoral arteries. [place] aneurysm has inc reased by 2 mm since 05/29/2022. No periaortic fluid collection. No free fluid, intraperitoneal air or significant lymphadenopathy. GI tract: Nondistended stomach. No small bowel obstruction. There is marked fecal retention and const ipation throughout the colon with overlapping loops. Prior appendectomy. No colon obstruction. Abdominal wall: Status post ventral abdominal wall repair. No recurrent hernia identified. Pelvis: Normally distended bladder. Prostate is mildly enlarged and heterogeneous with calcification. Collection with adjacent surgical clips at the RIGHT groin measuring 4.1 x 5.3 cm. This was also gumaro cribed on the prior CT from 05/29/2022 without increase in size. Probably representing a postoperative seroma from the aortic graft placement and repair. This likely corresponds to the palpable abnormali ty. Osseous structures: Degenerative disc disease is moderate at L4-5. Mild anterior wedging of T12 by 20 %. Chronic T12 fracture. CT/CT abdomen pelvis wo con [id number] IMPRESSION: 1. RIGHT inguinal mass corresponds to a long-term cystic collection measuring 4.1 x 5.3 cm. Most likely a postoperative seroma related to the aortofemoral by pass graft. 2. 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 3. [place] abdominal aortic aneurysm has increased by 2 mm since 05/29/2022, no w measuring maximum diameter 3.6 cm. 4. Chronic atrophy LEFT kidney. 5. Chronic T12, 20% compression fracture. 6. Prior abdominal wall hernia repair. 7. Diffuse constipation with tortuosity of the colon.
== END 2023-04-15 09:16 | disposition home or self-care (01) ==
PROVIDERS: PCP Family Medicine; Visit Provider Family Medicine
DX: K40.90 Unilateral inguinal hernia, without obstruction or gangrene, not specified as recurrent (principal); R19.09 Other intra-abdominal and pelvic swelling, mass and lump
CPT/HCPCS: 74176